=== PATIENT | female | born 1970 | race Caucasian/White ===

== ENCOUNTER 2017-01-28 16:49 | Inpatient (IN) | payer OTHER ==
[~2017-01-28] VITALS: Ht 157.5 cm; Wt 70.0 kg
[2017-01-28 16:49] VITALS: BP 136/66
[~2017-01-28 16:49] MED LIST: CLINDAMYCIN HC300 MG PO; HYDROCODONE BIT1 T11 PO
[2017-01-28 17:32] LABS: BASO # 0.1 10*3/uL (0.0-0.1); BASO % 0.4 % (0.0-1.0); EOS # 0.3 10*3/uL (0.0-0.4); HEMATOCRIT 42.9 % (37.0-47.0); HEMOGLOBIN 14.1 g/dl (12.0-16.0); IG # 0.1 10*3/uL (0.0-0.1); LYMPH # 2.6 10*3/uL (1.3-4.4); LYMPH % 19.8 % (27.0-41.0); MEAN CELL VOLUME 89.2 fl (81.0-99.0); MEAN CORPUSCULAR HGB 29.3 pg (27.0-31.0); MEAN CORPUSCULAR HGB CONC 32.9 g/dl (33.0-37.0); MEAN PLATELET VOLUME 9.2 fl (9.6-12.3); MONO # 0.9 10*3/uL (0.1-1.0); MONO % 6.9 % (3.0-9.0); NEUT # 9.4 10*3/uL (2.3-7.9); NEUT % 70.5 % (47.0-73.0); PLATELET COUNT AUTOMATED 251 10*3/uL (130-400); RED BLOOD COUNT 4.81 10*6/uL (4.10-5.10); WHITE BLOOD COUNT 13.4 10*3/uL (4.8-10.8)
[2017-01-28 17:49] LABS: ALBUMIN 3.8 gm/dl (3.1-4.5); ALKALINE PHOSPHATASE 87 U/L (45-117); BILIRUBIN, TOTAL 0.4 mg/dl (0.2-1.0); BUN 18 mg/dl (7-24); C-REACTIVE PROTEIN 3.67 MG/DL (0-0.3); CARBON DIOXIDE 20 mmol/L (21-32); CHLORIDE 113 mmol/L (98-107); EST GLOM FILT AFRICAN AMERICAN > 60 ml/min; GLUCOSE 92 mg/dL (65-99); SGOT/AST 9 IU/L (3-35); SGPT/ALT 14 U/L (12-78); SODIUM 139 mmol/L (136-145); TOTAL PROTEIN 7.5 gm/dL (6.4-8.2)
[2017-01-28 17:49] LABS: BILIRUBIN NEGATIVE (NEGATIVE); BLOOD NEGATIVE (NEGATIVE); CLARITY CLEAR (CLEAR); COLOR YELLOW (YELLOW); GLUCOSE NEGATIVE (NEGATIVE); KETONE TRACE (NEGATIVE); LEUKO ESTERASE NEGATIVE (NEGATIVE); NITRITE NEGATIVE (NEGATIVE); PROTEIN NEGATIVE (NEGATIVE); UROBILINOGEN 0.2 E.U./dl (0.2-1.0)
[2017-01-28 17:58] LABS: BACTERIA 2+; URINE REFLEX COMMENT YES (NO)
[2017-01-28] MEDS ORDERED: TOPAMAX50 MG PO (18:27)
[2017-01-28] MEDS ORDERED: ZOCOR20 MG PO (18:27)
[2017-01-28] MEDS ORDERED: PREMPRO PO (18:27)
[2017-01-28] MEDS ORDERED: LEADER ASPIRIN81 MG PO (18:28)
[2017-01-28] MEDS ORDERED: WOMEN'S DAILY F1 TAB PO (18:28)
[2017-01-28 19:27] VITALS: BP 116/60
[2017-01-28 19:44] VITALS: BP 115/69
[2017-01-28 20:34] VITALS: BP 114/80
[2017-01-28] MEDS ORDERED: ZOLOFT50 MG PO (21:17)
[2017-01-29] VITALS: BP 107/58
[2017-01-29 07:12] LABS: BASO # 0.1 10*3/uL (0.0-0.1); BASO % 0.6 % (0.0-1.0); EOS # 0.3 10*3/uL (0.0-0.4); EOS % 3.7 % (1.0-4.0); HEMATOCRIT 40.5 % (37.0-47.0); HEMOGLOBIN 13.1 g/dl (12.0-16.0); LYMPH # 2.6 10*3/uL (1.3-4.4); MEAN CORPUSCULAR HGB 29.8 pg (27.0-31.0); MEAN CORPUSCULAR HGB CONC 32.3 g/dl (33.0-37.0); MEAN PLATELET VOLUME 9.4 fl (9.6-12.3); MONO # 0.6 10*3/uL (0.1-1.0); MONO % 7.5 % (3.0-9.0); NEUT # 4.2 10*3/uL (2.3-7.9); NEUT % 53.8 % (47.0-73.0); PLATELET COUNT AUTOMATED 204 10*3/uL (130-400); RED BLOOD COUNT 4.39 10*6/uL (4.10-5.10); RED CELL DISTRI WIDTH 14.1 % (0-14.5); WHITE BLOOD COUNT 7.8 10*3/uL (4.8-10.8)
[2017-01-29 07:19] LABS: MEAN CELL VOLUME 92.3 fl (81.0-99.0)
[2017-01-29 07:43] LABS: HEMOGLOBIN A1c 5.3 % (4.8-5.6)
[2017-01-29 07:44] LABS: BUN 9 mg/dl (7-24); CARBON DIOXIDE 25 mmol/L (21-32); CHLORIDE 113 mmol/L (98-107); CHOLESTEROL 142 mg/dL (<200); EST GLOM FILT AFRICAN AMERICAN > 60 ml/min; GLUCOSE 92 mg/dL (65-99); POTASSIUM 3.7 mmol/L (3.5-5.1); SODIUM 141 mmol/L (136-145)
[2017-01-29 07:54] LABS: INTERNATIONAL NORM RATIO 0.9 (2.0-3.5); PROTHROMBIN TIME 9.6 SECONDS (8.9-12.2)
[2017-01-29 07:56] LABS: FREE T4 0.88 ng/dl (0.76-1.46); HDL CHOLESTEROL 43 mg/dl (40-60); LDL CHOLESTEROL 76 mg/dL (9-159); TRIGLYCERIDES 115 mg/dl (<150); VLDL CHOLESTEROL 23 mg/dL (6-40)
[2017-01-29 08:00] VITALS: BP 109/63
[2017-01-29 08:03] LABS: VITAMIN D, 25-HYDROXY 26.1 ng/mL (30-100)
[2017-01-29 08:04] LABS: FOLIC ACID > 24.00 ng/mL (>5.38)
[2017-01-29 12:00] VITALS: BP 126/86
[2017-01-29] MEDS ORDERED: PREMPRO 0.625 M1 TA3 PO (12:05)
[2017-01-29 16:00] VITALS: BP 106/65
[2017-01-29 20:00] VITALS: BP 115/52
[2017-01-30] VITALS: BP 113/77
[2017-01-30 08:00] VITALS: BP 134/80
[2017-01-30] MEDS ORDERED: METRONIDAZOLE500 M1 PO (10:51)
[2017-01-30] MEDS ORDERED: CIPRO500 MG PO (10:51)
[2017-01-30 12:00] VITALS: BP 144/83
== END 2017-01-30 11:23 | disposition home or self-care (01) | DRG 392 ==
LOC: ED 16:49 → EDHOLD 20:13 → 4E 20:13
PROVIDERS: Internal Medicine; Student in an Organized Health Care Education/Training Program
DX: K57.92 Diverticulitis of intestine, part unspecified, without perforation or abscess without bleeding (principal); E87.8 Other disorders of electrolyte and fluid balance, not elsewhere classified; E78.5 Hyperlipidemia, unspecified; N95.9 Unspecified menopausal and perimenopausal disorder; D72.829 Elevated white blood cell count, unspecified; Z82.49 Family history of ischemic heart disease and other diseases of the circulatory system; Z88.0 Allergy status to penicillin; Z91.018 Allergy to other foods; Z79.82 Long term (current) use of aspirin; Z71.6 Tobacco abuse counseling; Z79.899 Other long term (current) drug therapy

== ENCOUNTER → 2017-02-19 | Outpatient (CLI) | payer OTHER ==
[~2017-02-19] MED LIST changes: +CIPRO500 MG PO; +LEADER ASPIRIN81 MG PO; +METRONIDAZOLE500 M1 PO; +PREMPRO 0.625 M1 TA3 PO; +PREMPRO PO; +TOPAMAX50 MG PO; +WOMEN'S DAILY F1 TAB PO; +ZOCOR20 MG PO; +ZOLOFT50 MG PO
[2017-02-19 08:12] LABS: CREATININE 0.74 mg/dL (0.55-1.02)
== END | disposition home or self-care (01) ==
LOC: LAB 07:48 → CT 08:00
PROVIDERS: Internal Medicine
DX: K57.30 Diverticulosis of large intestine without perforation or abscess without bleeding (principal); K76.0 Fatty (change of) liver, not elsewhere classified; K57.92 Diverticulitis of intestine, part unspecified, without perforation or abscess without bleeding

== ENCOUNTER → 2017-03-26 | Day surgery (SDC) | payer OTHER ==
[~2017-03-26] VITALS: Ht 157.4 cm; Wt 69.9 kg
--- NOTE | ~2017-03-26 | PROC NOTE ---
[place], [place] PROCEDURE NOTE [id number] UNIT #: [id number] ROOM: DOCTOR: BUTCH DOMINGUEZ MD BIRTHDATE: [birth year] DOS: 03/26/2017 PREOPERATIVE DIAGNOSIS: History of sigmoid diverticulosis. POSTOPERATIVE DIAGNOSIS: Arce colonic diverticulosis. PROCEDURE: Colonoscopy. ENDOSCOPIST: Butch Dominguez M.D. SURVEILLANCE OPERATOR: [id number]. ANESTHESIA: MAC. INDICATIONS: This is a 46-year-old lady with a history of previous sigmoid diverticulitis who is here for the above-mentioned procedure. The procedure and its complications were explained to the patient in detail preoperatively. Complications that were discussed included, but were not limited to bleeding, missed lesions and colon perforation. She agreed to proceed. DESCRIPTION OF PROCEDURE: After identifying the patient, the patient was brought to the endoscopy suite and placed in the left lateral position. After IV sedation was administered, a timeout procedure was called and a digital rectal exam was performed. This was within normal limits. An adult colonoscope was now introduced into the anal canal and advanced sequentially into the rectum, sigmoid colon, descending colon, transverse colon and ascending colon up to the cecum. Upon reaching the cecum, the scope was withdrawn. Total withdrawal time was approximately 7 minutes. There was found to be arce colonic diverticulosis, no other lesions were identified upon withdrawal of the scope. The patient was taken to the recovery room in a stable fashion. There were no complications. Dr. Butch Dominguez, the attending endoscopist, was present throughout the operating case. Based on these findings, the patient is recommended another colonoscopy in 10 years or sooner if she has any new symptoms. Butch Dominguez MD CM:PROCNOTE:PROCEDURE NOTE [id number] BUTCH DOMINGUEZ MD
[2017-03-26 06:45] VITALS: BP 127/84
[2017-03-26 07:55] VITALS: BP 109/58
[2017-03-26 08:10] VITALS: BP 124/64
[2017-03-26 08:25] VITALS: BP 130/86
== END | disposition home or self-care (01) ==
LOC: SDC 03-20 08:00
DX: K57.30 Diverticulosis of large intestine without perforation or abscess without bleeding (principal); Z98.890 Other specified postprocedural states; F17.210 Nicotine dependence, cigarettes, uncomplicated; Z88.0 Allergy status to penicillin; Z79.899 Other long term (current) drug therapy; F32.9 Major depressive disorder, single episode, unspecified; G47.30 Sleep apnea, unspecified